=== PATIENT | female | born 1960 | race African-American/Black ===

== ENCOUNTER 2022-11-14 11:11 | Day surgery (SDC) | payer OTHER ==
[~2022-11-14] VITALS: Ht 167.6 cm; Wt 116.1 kg
[2022-11-14] MEDS ORDERED: diphenhydrAMINE 50 MG/ML VIAL ONE (12:23)
[2022-11-14] MEDS ORDERED: fentaNYL citrate 0.05 MG/ML VIAL ONE (12:24)
[2022-11-14] MEDS ORDERED: LIDOCAINE 2% 100 MG/5 ML UJET TP ONE (12:24)
[2022-11-14] MEDS ORDERED: MIDAZOLAM 5 MG/5 ML VIAL ONE (12:24)
[2022-11-14] MEDS ORDERED: fentaNYL citrate 0.05 MG/ML VIAL IVP ONE (14:35)
[2022-11-14] MEDS ORDERED: MIDAZOLAM 2 MG/2 ML VIAL IVP ONE (14:35)
== END 2022-11-14 13:57 | disposition home or self-care (01) ==
LOC: MMU 11:11 → MDS 11:11
PROVIDERS: ATTEND Internal Medicine Gastroenterology
DX: Z12.11 Encounter for screening for malignant neoplasm of colon (principal); D12.0 Benign neoplasm of cecum; G47.33 Obstructive sleep apnea (adult) (pediatric); E78.00 Pure hypercholesterolemia, unspecified; G43.909 Migraine, unspecified, not intractable, without status migrainosus; I12.9 Hypertensive chronic kidney disease with stage 1 through stage 4 chronic kidney disease, or unspecified chronic kidney disease; N18.9 Chronic kidney disease, unspecified; Z99.89 Dependence on other enabling machines and devices; Z90.710 Acquired absence of both cervix and uterus; E66.01 Morbid (severe) obesity due to excess calories; Z68.41 Body mass index [BMI] 40.0-44.9, adult; Z90.89 Acquired absence of other organs; Z88.0 Allergy status to penicillin; Z79.899 Other long term (current) drug therapy; Z20.822 Contact with and (suspected) exposure to COVID-19
CPT/HCPCS: 45385; 87426; 88305; J2250; J3010; J1200